=== PATIENT | female | born 1955 | race Caucasian/White ===

== ENCOUNTER 2018-02-19 07:33 | Day surgery (SDC) | payer OTHER ==
[~2018-02-19 07:33] MED LIST: AMBIEN5 MG PO; DIOVAN HCT 1601 EACH PO; EVISTA60 MG PO; GLUCOPHAGE XR500 MG PO; SIMVASTATIN20 MG PO
== END 2018-02-19 22:40 | disposition home or self-care (01) ==
LOC: CIR.AMB 07:33
DX: K62.1 Rectal polyp (principal); K64.4 Residual hemorrhoidal skin tags